=== PATIENT | female | born 1970 | race Caucasian/White ===

== ENCOUNTER 2024-09-17 14:20 | Emergency (ER) | payer OTHER, SELFPAY ==
[2024-09-17 14:25] VITALS: PULSE 94; RESP 14; TEMP 36.5; O2SAT 99
--- OUTSIDE RECORDS SUMMARY | 2024-09-17 14:25 | XMS_ITS | Encounter Summary ---
Author Organization [employer] [facility] Address [address] [place] [address] Care Team Providers Care Content Strategist Name Role Phone Non-Staff, Physician Primary Care Provider Unava ilable Encounter Details Date Type Department Care Team (Latest Contact Info) Description 11/25/2005 Outpatient Historical [facility] CASINO GAMES DEALER 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
--- OUTSIDE RECORDS SUMMARY | 2024-09-17 14:25 | XMS_ITS | Encounter Summary ---
Author Organization [facility] Address [address] [place] [address] Care Team Providers Care Crusher Supervisor Name Role Phone Non-Staff, Physician Primary Care Provider Unava ilable Encounter Details Date Type Department Care Team (Late st Contact Info) Description 02/07/2008 Outpatient Historical [facility] [address] 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
--- OUTSIDE RECORDS SUMMARY | 2024-09-17 14:25 | XMS_ITS | Encounter Summary ---
Author Organization [facility] Address [address] [place] [address] Care Team Providers Care Music Engineer Name Role Phone Non-Staff, Physician Primary Care Provider Unava ilable Encounter Details Date Type Department Care Team (Latest Contact Info) Description 10/22/2005 Outpatient Historical [facility] Maternal and Medicine-[facility] [address] [place] [phone] Fernandez Montanez MD NO ADDRESS ON FILE Abn NEC-Antepar (Primary Dx) Social History Tobacco Use Types Packs/Day Years Used Date Smoking Tobacco: Never Assessed Comments Unknown Sex and Gender Information Value Date Recorded Sex Assigned at Not on file 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
--- OUTSIDE RECORDS SUMMARY | 2024-09-17 14:25 | XMS_ITS | Encounter Summary ---
Author Organization [facility] Address [address] [place] [address] Care Team Providers Care Rug Cleaner Hand Name Role Phone Non-Staff, Physician Primary Care Provider Unava ilable Encounter Details Date Type Department Care Team (Late st Contact Info) Description 02/22/2008 Outpatient Historical [facility] [address] 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
--- OUTSIDE RECORDS SUMMARY | 2024-09-17 14:25 | XMS_ITS | Encounter Summary ---
Author Organization [facility] Address [address] [place] [address] Care Team Providers Care Tufting Machine Operator Single Needle Name Role Phone Non-Staff, Physician Primary Care Provider Unava ilable Encounter Details Date Type Department Care Team (Latest Contact Info) Description 11/25/2005 Outpatient Historical [facility] Maternal and Medicine-[place] live [address] [place] [phone] Russ Nickerson II, MD [address] [place] [phone] Abn NEC-Antepar (Primary Dx); Abnormality in Heart Rate/Rhythm, Antepartum; Poor Grth-Antepart Social History Tobacco Use Types Packs/Day Years Used Date Smoking Tobacco: Never Assessed Comments Unknown Sex and Gender Information Value Date Recorded Sex Assigned at Not on file 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 Gender Identity Not on file Sexual Orientation Not on file documented as of this encounter Plan of Treatment Not on file documented as of this encounter Visit Diagnoses Diagnosis Other known or suspected abnormality, not elsewhere classified, affecting management of mother, antepartum condition or complication- Primary Abnormality in heart rate/rhythm, antepartum condition or complication Poor growth, affecting management of mother, antepartum condition or complication documented in this encounter Care Teams Tufting Machine Operator Single Needle Relationship Specialty Start Date End Date Non-Staff, Physician NO ADDRESS ON FILE PCP - General 06/01/07 documented as of this encounter
--- OUTSIDE RECORDS SUMMARY | 2024-09-17 14:25 | XMS_ITS | Encounter Summary ---
Author Organization [employer] [facility] Address [address] [place] [address] Care Team Providers Care Catering Operations Manager Name Role Phone Non-Staff, Physician Primary Care Provider Unava ilable Encounter Details Date Type Department Care Team (Late st Contact Info) Description 11/10/2005 Inpatient Historical [facility] Ric Alexander MD NO ADDRESS ON FILE Other Current Maternal Conditions Classifiable Elsewhere, Antepartum (Primary Dx) Social History Tobacco Use Types Packs/Day Years Used Date Smoking Tobacco: Never Assessed Comments Unknown Sex and Gender Information Value Date Recorded Sex Assigned at Not on file 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 Gender Identity Not on file Sexual Orientation Not on file documented as of this encounter Plan of Treatment Not on file documented as of this encounter Procedures Procedure Name Priority Date/Time Associated Diagnosis Comments CBC WITH DIFFERENTIAL Routine 11/11/2005 7:04 AM CDT GENTAMICIN LEVEL PEAK Routine 11/10/2005 4:55 PM CDT GENTAMICIN LEVEL TROUGH Routine 11/10/2005 2:45 PM CDT CBC WITH DIFFERENTIAL Routine 11/10/2005 2:25 PM CDT CBC WITH DIFFERENTIAL Routine 11/09/2005 11:08 PM CDT BASIC METABOLIC PANEL Routine 11/09/2005 11:08 PM CDT URINALYSIS MICROSCOPY ONLY Routine 11/09/2005 10:48 PM CDT KETONE, QUALITATIVE, URINE Routine 11/09/2005 10:48 PM CDT URINALYSIS W/REFLEX MICROSCOPIC Routine 11/09/2005 10:48 PM CDT documented in this encounter Results * (ABNORMAL) CBC WITH DIFFERENTIAL (11/11/2005 7:04 AM CDT) WBC 11.8(H) 4.5 - 11.0 K/ul INTERFACE SYSTEM RBC 4.37 4.20 - 5.40 Mil/ul INTERFACE SYSTEM HEMOGLOBIN 13.2 12.0 - 16.0 g/dL INTERFACE SYSTEM HEMATOCRIT 40.2 36.0 - 46.0 % INTERFACE SYSTEM MCV 92.0 84.0 - 103.0 Fl INTERFACE SYSTEM MCH 30.2 27.0 - 34.0 pg INTERFACE SYSTEM MCHC 32.8 30.0 - 35.0 g/dL INTERFACE SYSTEM RDW 13.1 11.0 - 14.5 % INTERFACE SYSTEM PLATELETS 214 140 - 440 K/ul INTERFACE SYSTEM MPV 10.1 8.9 - 12.8 Fl INTERFACE SYSTEM NEUTROPHILS 72.2 42.2 - 75.2 % INTERFACE SYSTEM LYMPHOCYTES 15.2(L) 24.0 - 44.0 % INTERFACE SYSTEM MONOCYTES 7.1 2.0 - 10.0 % INTERFACE SYSTEM EOSINOPHILS 5.2 0.0 - 7.0 % INTERFACE SYSTEM BASOPHILS 0.3 0.0 - 1.0 % INTERFACE SYSTEM NEUTROPHIL ABSOLUTE 8.5(H) 2.0 - 8.0 K/uL INTERFACE SYSTEM LYMPHOCYTE ABSOLUTE 1.8 1.2 - 4.0 K/ul INTERFACE SYSTEM MONOCYTE ABSOLUTE 0.8(H) 0.1 - 0.6 K/ul INTERFACE SYSTEM EOSINOPHIL ABSOLUTE 0.6 0.0 - 0.7 K/ul INTERFACE SYSTEM BASOPHILS ABSOLUTE 0.0 0.0 - 0.2 K/ul INTERFACE SYSTEM 11/11/2005 7:04 AM CDT us Ric Alexander MD HEMATOLOGY ORDERABLES Final Res ult INTERFACE SYSTEM Refer to clinic/hospital department * (ABNORMAL) GENTAMICIN LEVEL PEAK (11/10/2005 4:55 PM CDT) GENTAMICIN, PEAK 3.4(L) 4.0 - 10.0 mcg/mL INTERFACE SYSTEM 11/10/2005 4:55 PM CDT Ric Alexander MD CHEMISTRY ORDERABLES Final Resu Performing Organization Address [facility] de Phone Number INTERFACE SYSTEM Refer to clinic/hospital department * GENTAMICIN LEVEL TROUGH (11/10/2005 2:45 PM CDT) GENTAMICIN, TROUGH 0.3 0.0 - 2.0 mcg/mL INTERFACE SYSTEM 11/10/2005 2:45 PM CDT Ric Alexander MD CHEMISTRY ORDERABLES [facility] Performing Organization Address [facility] Phone Number INTERFACE SYSTEM Refer to clinic/hospital department * (ABNORMAL) CBC WITH DIFFERENTIAL (11/10/2005 2:25 PM CDT) WBC 13.0(H) 4.5 - 11.0 K/ul INTERFACE SYSTEM RBC 4.21 4.20 - 5.40 Mil/ul INTERFACE SYSTEM HEMOGLOBIN 12.9 12.0 - 16.0 g/dL INTERFACE SYSTEM HEMATOCRIT 38.8 36.0 - 46.0 % INTERFACE SYSTEM MCV 92.2 84.0 - 103.0 Fl INTERFACE SYSTEM MCH 30.6 27.0 - 34.0 pg INTERFACE SYSTEM MCHC 33.2 30.0 - 35.0 g/dL INTERFACE SYSTEM RDW 13.1 11.0 - 14.5 % INTERFACE SYSTEM PLATELETS 212 140 - 440 K/ul INTERFACE SYSTEM MPV 10.7 8.9 - 12.8 Fl INTERFACE SYSTEM NEUTROPHILS 85.3(H) 42.2 - 75.2 % INTERFACE SYSTEM LYMPHOCYTES 8.3(L) 24.0 - 44.0 % INTERFACE SYSTEM MONOCYTES 5.6 2.0 - 10.0 % INTERFA CE SYSTEM EOSINOPHILS 0.6 0.0 - 7.0 % INTERF MIKAL SYSTEM BASOPHILS 0.2 0.0 - 1.0 % INTERFAC E SYSTEM NEUTROPHIL ABSOLUTE 11.1(H) 2.0 - 8.0 K/uL INTERFACE SYSTEM LYMPHOCYTE ABSOLUTE 1.1(L) 1.2 - 4.0 K/ul INTERFACE SYSTEM MONOCYTE ABSOLUTE 0.7(H) 0.1 - 0.6 K/ul INTERFACE SYSTEM EOSINOPHIL ABSOLUTE 0.1 0.0 - 0.7 K/ul INTERFACE SYSTEM BASOPHILS ABSOLUTE 0.0 0.0 - 0.2 K/ul INTERFACE SYSTEM PERIPHERAL BLOOD SMEAR REVIEW Automated Diff Automated Diff INTERFACE SYSTEM 11/10/2005 2:25 PM CDT Ric Alexander MD HEMATOLOGY ORDERABLES Final Res ult Performing Organization Address [facility] Phone Number INTERFACE SYSTEM Refer to clinic/hospital department * (ABNORMAL) BASIC METABOLIC PANEL (11/09/2005 11:08 PM CDT) GLUCOSE 97 70 - 110 mg/dL INTERFACE SYSTEM BUN 6(L) 7 - 17 mg/dL INTERFACE SYSTEM CREATININE 0.4(L) 0.7 - 1.2 mg/dL INTERFACE SYSTEM SODIUM 138 136 - 145 mEq/L INTERFACE SYSTEM POTASSIUM 3.8 3.5 - 5.0 mEq/L INTERFACE SYSTEM CHLORIDE 104 95 - 110 mEq/L INTERFACE SYSTEM CO2 21(L) 22 - 32 mmol/l INTERFACE SYSTEM ANION GAP 17 9 - 20 mEq/L INTERFACE SYSTEM OSMOLALITY, CALCULATED 281 275 - 295 mOsm/Kg INTERFACE SYSTEM CALCIUM 9.2 8.4 - 10.5 mg/dL INTERFACE SYSTEM 11/09/2005 11:0 8 PM CDT Ric Alexander MD CHEMISTRY ORDERABLES Final Resu lt Performing Organization Address [facility] Phone Number INTERFACE SYSTEM Refer to clinic/hospital department * (ABNORMAL) CBC WITH DIFFERENTIAL (11/09/2005 11:08 PM CDT) WBC 18.0(H) 4.5 - 11.0 K/ul INTERFACE SYSTEM RBC 4.28 4.20 - 5.40 Mil/ul INTERFACE SYSTEM HEMOGLOBIN 13.3 12.0 - 16.0 g/dL INTERFACE SYSTEM HEMATOCRIT 38.5 36.0 - 46.0 % INTERFACE SYSTEM MCV 90.0 84.0 - 103.0 Fl INTERFACE SYSTEM MCH 31.1 27.0 - 34.0 pg INTERFACE SYSTEM MCHC 34.5 30.0 - 35.0 g/dL INTERFACE SYSTEM RDW 13.0 11.0 - 14.5 % INTERFACE SYSTEM PLATELETS 218 140 - 440 K/ul INTERFACE SYSTEM MPV 10.8 8.9 - 12.8 Fl INTERFACE SYSTEM NEUTROPHILS 86.3(H) 42.2 - 75.2 % INTERFACE SYSTEM LYMPHOCYTES 7.0(L) 24.0 - 44.0 % INTERFACE SYSTEM MONOCYTES 5.8 2.0 - 10.0 % INTERFA CE SYSTEM EOSINOPHILS 0.8 0.0 - 7.0 % INTERF MIKAL SYSTEM BASOPHILS 0.1 0.0 - 1.0 % INTERFAC E SYSTEM NEUTROPHIL ABSOLUTE 15.5(H) 2.0 - 8.0 K/uL INTERFACE SYSTEM LYMPHOCYTE ABSOLUTE 1.3 1.2 - 4.0 K/ul INTERFACE SYSTEM MONOCYTE ABSOLUTE 1.0(H) 0.1 - 0.6 K/ul INTERFACE SYSTEM EOSINOPHIL ABSOLUTE 0.2 0.0 - 0.7 K/ul INTERFACE SYSTEM BASOPHILS ABSOLUTE 0.0 0.0 - 0.2 K/ul INTERFACE SYSTEM PERIPHERAL BLOOD SMEAR REVIEW Automated Diff Automated Diff INTERFACE SYSTEM 11/09/2005 11:0 8 PM CDT us Ric Alexander MD HEMATOLOGY ORDERABLES Final Res ult INTERFACE SYSTEM Refer to clinic/hospital department * (ABNORMAL) URINALYSIS MICROSCOPY ONLY (11/09/2005 10:48 PM CDT) WBC URINE 0-2 0 - 2 INTERFACE SYSTEM RBC UA 0-2 0 - 2 INTERFACE SYSTEM HYALINE CAST None Seen 0 - 2 INTERFA CE SYSTEM BACTERIA UA Few(A) None Seen INTERFAC E SYSTEM 11/09/2005 10:4 8 PM CDT us Ric Alexander MD URINE ORDERABLES Final Result INTERFACE SYSTEM Refer to clinic/hospital department * (ABNORMAL) ACETONE QUALITATIVE, URINE (11/09/2005 10:48 PM CDT) KETONES UA Moderate(A ) Negative INTERFACE SYSTEM 11/09/2005 10:4 8 PM CDT us Ric Alexander MD URINE ORDERABLES Final Result Performing Organization Address [facility] Co de Phone Number INTERFACE SYSTEM Refer to clinic/hospital department * (ABNORMAL) URINALYSIS (11/09/2005 10:48 PM CDT) COLOR UA Yellow Straw INTERFACE SYSTEM CLARITY UA SL CLOUDY Clear INTERFACE SYSTEM LEUKOCYTE ESTERASE UA NEGATIVE NEGATIVE INTERFACE SYSTEM NITRITE UA NEGATIVE NEGATIVE INTERFACE SYSTEM PH UA 6.0 5.0 - 9.0 INTERFACE SYSTEM PROTEIN UA NEGATIVE NEGATIVE INTERFACE SYSTEM Comment: As of 04 positive protein results obtained on routine urinalysis will not be confirmed by sulfosalicylic acid (SSA) precipitation. Current methodology for protein detection is highly sensitive for detection of albumin; therefore, confirmation is not necessary. GLUCOSE UA NEGATIVE NEGATIVE INTERFACE SYSTEM UROBILINOGEN UA 0.2 0.2 INTE RFACE SYSTEM BILIRUBIN UA NEGATIVE NEGATIVE INTERFA CE SYSTEM BLOOD UA Trace(A) NEGATIVE INTERFACE SYSTEM SPECIFIC GRAVITY UA 1.010 1.005 - 1.030 INTERFACE SYSTEM MICRO EXAM Yes(A) No INTERFACE SYSTEM 11/09/2005 10:4 8 PM CDT Ric Alexander MD URINE ORDERABLES Final Result Performing Organization Address [facility] Phone Number INTERFACE SYSTEM Refer to clinic/hospital department documented in this encounter Visit Diagnoses Diagnosis Other current maternal conditions classifiable elsewhere, antepartum- Primary documented in this encounter Care Teams Catering Operations Manager Relationship Specialty Start Date End Date Non-Staff, Physician NO ADDRESS ON FILE PCP - General 06/01/07 documented as of this encounter
--- OUTSIDE RECORDS SUMMARY | 2024-09-17 14:25 | XMS_ITS | Encounter Summary ---
Author Organization [facility] Address [address] [place] [address] Care Team Providers Care Electromechanical Equipment Tester Name Role Phone Non-Staff, Physician Primary Care Provider Unava ilable Encounter Details Date Type Department Care Team (Latest Contact Info) Description 11/18/2005 Outpatient Historical [facility] Maternal and Medicine-[place] live [address] [place] [phone] Russ Nickerson II, MD [address] [place] [phone] Abn NEC-Antepar (Primary Dx); Abnormality in Heart Rate/Rhythm, Antepartum; Poor Grth-Antepart Social History Tobacco Use Types Packs/Day Years Used Date Smoking Tobacco: Never Assessed Comments Unknown Sex and Gender Information Value Date Recorded Sex Assigned at Not on file 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
--- OUTSIDE RECORDS SUMMARY | 2024-09-17 14:25 | XMS_ITS | Encounter Summary ---
Author Organization [facility] Address [address] [place] [address] Care Team Providers Care Ethylbenzene Converter Helper Name Role Phone Non-Staff, Physician Primary Care Provider Unava ilable Encounter Details Date Type Department Care Team (Latest Contact Info) Description 12/16/2005 Outpatient Historical [facility] SAFETY ATTENDANT 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
--- OUTSIDE RECORDS SUMMARY | 2024-09-17 14:25 | XMS_ITS | Encounter Summary ---
Author Organization [facility] Address [address] [place] [address] Care Team Providers Care Rigging Up Man Name Role Phone Non-Staff, Physician Primary Care Provider Unava ilable Encounter Details Date Type Department Care Team (Latest Contact Info) Description 11/11/2005 Outpatient Historical [facility] Maternal and Medicine-[place] live [address] [place] [phone] Russ Nickerson II, MD [address] [phone] Abnormality in Heart Rate/Rhythm, Antepartum (Primary Dx); Other High-Risk Social History Tobacco Use Types Packs/Day Years Used Date Smoking Tobacco: Never Assessed Comments Unknown Sex and Gender Information Value Date Recorded Sex Assigned at Not on file 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
--- OUTSIDE RECORDS SUMMARY | 2024-09-17 14:25 | XMS_ITS | Encounter Summary ---
Author Organization [facility] Address [address] [place] [address] Care Team Providers Care Java Application Engineer Name Role Phone Non-Staff, Physician Primary Care Provider Unava ilable Encounter Details Date Type Department Care Team (Latest Contact Info) Description 11/05/2005 Outpatient Historical [facility] Maternal and Medicine-[place] live [address] [place] [phone] Russ Nickerson II, MD [address] [place] [phone] Abn NEC-Antepar (Primary Dx) Social History Tobacco Use Types Packs/Day Years Used Date Smoking Tobacco: Never Assessed Comments Unknown Sex and Gender Information Value Date Recorded Sex Assigned at Not on file 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
--- OUTSIDE RECORDS SUMMARY | 2024-09-17 14:25 | XMS_ITS | Encounter Summary ---
Author Organization [facility] Address [address] [place] [address] Care Team Providers Care Commercial Green Building Designer Name Role Phone Non-Staff, Physician Primary Care Provider Unava ilable Encounter Details Date Type Department Care Team (Latest Contact Info) Description 12/02/2005 Outpatient Historical [facility] Maternal and Medicine-[place] live [address] [place] [phone] Russ Nickerson II, MD [address] [place] [phone] Abn NEC-Antepar (Primary Dx); Poor Grth-Antepart; Abnormality in Heart Rate/Rhythm, Antepartum Social History Tobacco Use Types Packs/Day Years Used Date Smoking Tobacco: Never Assessed Comments Unknown Sex and Gender Information Value Date Recorded Sex Assigned at Not on file 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 Gender Identity Not on file Sexual Orientation Not on file documented as of this encounter Plan of Treatment Not on file documented as of this encounter Visit Diagnoses Diagnosis Other known or suspected abnormality, not elsewhere classified, affecting management of mother, antepartum condition or complication- Primary Poor growth, affecting management of mother, antepartum condition or complication Abnormality in heart rate/rhythm, antepartum condition or complication documented in this encounter Care Teams Commercial Green Building Designer Relationship Specialty Start Date End Date Non-Staff, Physician NO ADDRESS ON FILE PCP - General 06/01/07 documented as of this encounter
--- OUTSIDE RECORDS SUMMARY | 2024-09-17 14:25 | XMS_ITS | Encounter Summary ---
Author Organization [facility] Address [address] [place] [address] Care Team Providers Care Tractor Driver Teamster Name Role Phone Non-Staff, Physician Primary Care Provider Unava ilable Encounter Details Date Type Department Care Team (Latest Contact Info) Description 11/10/2005 Outpatient Historical [facility] Maternal and Medicine-[place] live [address] [place] [phone] Russ Nickerson II, MD [address] [phone] Abnormality in Heart Rate/Rhythm, Antepartum (Primary Dx); Other High-Risk Social History Tobacco Use Types Packs/Day Years Used Date Smoking Tobacco: Never Assessed Comments Unknown Sex and Gender Information Value Date Recorded Sex Assigned at Not on file Legal Sex Female 4:47 AM LONG TERM Gender Identity Not on file Sexual Orientation Not on file documented as of this encounter Plan of Treatment Not on file documented as of this encounter Visit Diagnoses Diagnosis Abnormality in heart rate/rhythm, antepartum condition or complication- Primary Supervision of other high-risk (V23.89) Supervision of other high-risk documented in this encounter Care Teams Tractor Driver Teamster Relationship Specialty Start Date End Date Non-Staff, Physician NO ADDRESS ON FILE PCP - General 06/01/07 documented as of this encounter
--- OUTSIDE RECORDS SUMMARY | 2024-09-17 14:25 | XMS_ITS | Encounter Summary ---
Author Organization [facility] Address [address] [place] [address] Care Team Providers Care Talent Development Consultant Name Role Phone Non-Staff, Physician Primary Care Provider Unava ilable Encounter Details Date Type Department Care Team (Late st Contact Info) Description 02/01/2008 Outpatient Historical [facility] [address] [place] [address] Tommy Rogers, Russ Hollis MD [address] [phone] Social History Tobacco Use Types Packs/Day Years Used Date Smoking Tobacco: Never Assessed Comments Unknown Sex and Gender Information Value Date Recorded Sex Assigned at Not on file Legal Sex Female 4:47 AM PER DIEM CLERK Gender Identity Not on file Sexual Orientation Not on file documented as of this encounter Plan of Treatment Not on file documented as of this encounter Visit Diagnoses Not on filedocumented in this encounter Care Teams Talent Development Consultant Relationship Specialty Start Date End Date Non-Staff, Physician NO ADDRESS ON FILE PCP - General 06/01/07 documented as of this encounter
--- OUTSIDE RECORDS SUMMARY | 2024-09-17 14:25 | XMS_ITS | Encounter Summary ---
Author Organization [facility] Address [address] [place] [address] Care Team Providers Care Data Storage Specialist Name Role Phone Non-Staff, Physician Primary Care Provider Unava ilable Encounter Details Date Type Department Care Team (Latest Contact Info) Description 12/16/2005 Outpatient Historical [facility] Maternal and Medicine-[facility] live [address] [place] [phone] Russ Nickerson II, MD [address] [place] [phone] Abn NEC-Antepar (Primary Dx); Poor Grth-Antepart; Abnormality in Heart Rate/Rhythm, Antepartum Social History Tobacco Use Types Packs/Day Years Used Date Smoking Tobacco: Never Assessed Comments Unknown Sex and Gender Information Value Date Recorded Sex Assigned at Not on file 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
--- OUTSIDE RECORDS SUMMARY | 2024-09-17 14:25 | XMS_ITS | Encounter Summary ---
Author Organization [facility] Address [address] [place] [address] Care Team Providers Care Turning Sander Operator Name Role Phone Non-Staff, Physician Primary Care Provider Unava ilable Encounter Details Date Type Department Care Team (Latest Contact Info) Description 11/07/2005 Outpatient Historical [facility] Ric Alexander MD NO ADDRESS ON FILE Other Current Maternal Conditions Classifiable Elsewhere, Antepartum (Primary Dx) Social History Tobacco Use Types Packs/Day Years Used Date Smoking Tobacco: Never Assessed Comments Unknown Sex and Gender Information Value Date Recorded Sex Assigned at Not on file 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
--- OUTSIDE RECORDS SUMMARY | 2024-09-17 14:25 | XMS_ITS | Encounter Summary ---
Author Organization [facility] Address [address] [place] [address] Care Team Providers Care Assurance Engineer Name Role Phone Non-Staff, Physician Primary Care Provider Unava ilable Encounter Details Date Type Department Care Team (Latest Contact Info) Description 11/05/2005 Outpatient Historical [facility] Ric Alexander MD NO ADDRESS ON FILE Supervision of Other Normal (Primary Dx) Social History Tobacco Use Types Packs/Day Years Used Date Smoking Tobacco: Never Assessed Comments Unknown Sex and Gender Information Value Date Recorded Sex Assigned at Not on file 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 Sex Female 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 Gender Identity Not on file Sexual Orientation Not on file documented as of this encounter Plan of Treatment Not on file documented as of this encounter Procedures Procedure Name Priority Date/Time Associated Diagnosis Comments CHROMOSOME ANALYSIS, AMNIOTIC FLUID Routine 11/05/2005 2:25 PM CDT documented in this encounter Results * CHROMOSOME ANALYSIS, AMNIOTIC FLUID (11/05/2005 2:25 PM CDT) CHROMOSOMES, AMNIOTIC FLD See Sep Report INTERFACE SYSTEM 11/05/2005 2:25 PM CDT us Ric Alexander MD BODY FLUIDS AND STOOLS Final Re sult INTERFACE SYSTEM Refer to clinic/hospital department documented in this encounter Visit Diagnoses Diagnosis Supervision of other normal - Primary documented in this encounter Care Teams Assurance Engineer Relationship Specialty Start Date End Date Non-Staff, Physician NO ADDRESS ON FILE PCP - General 06/01/07 documented as of this encounter
--- OUTSIDE RECORDS SUMMARY | 2024-09-17 14:25 | XMS_ITS | Encounter Summary ---
Author Organization [facility] Address [address] [place] [address] Care Team Providers Care It Integration Architect Name Role Phone Non-Staff, Physician Primary Care Provider Unava ilable Encounter Details Date Type Department Care Team (Late st Contact Info) Description 01/27/[address] [facility] [address] 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
--- OUTSIDE RECORDS SUMMARY | 2024-09-17 14:25 | XMS_ITS | Encounter Summary ---
Author Organization [facility] Address [address] [place] [address] Care Team Providers Care Stogy Maker Name Role Phone Non-Staff, Physician Primary Care Provider Unava ilable Encounter Details Date Type Department Care Team (Late st Contact Info) Description 01/26/2008 Outpatient Historical [facility] [address] 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
--- OUTSIDE RECORDS SUMMARY | 2024-09-17 14:25 | XMS_ITS | Encounter Summary ---
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
--- OUTSIDE RECORDS SUMMARY | 2024-09-17 14:25 | XMS_ITS | Encounter Summary ---
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
--- OUTSIDE RECORDS SUMMARY | 2024-09-17 14:25 | XMS_ITS | Encounter Summary ---
Author Organization [facility] Address [address] [place] [address] Care Team Providers Care Security Services Manager Name Role Phone Non-Staff, Physician Primary Care Provider Unava ilable Encounter Details Date Type Department Care Team (Latest Contact Info) Description 10/15/2005 Outpatient Historical [facility] Maternal and Medicine[facility] d [address] [place] [phone] Fernandez Montanez MD NO ADDRESS ON FILE Abn NEC-Antepar (Primary Dx) Social History Tobacco Use Types Packs/Day Years Used Date Smoking Tobacco: Never Assessed Comments Unknown Sex and Gender Information Value Date Recorded Sex Assigned at Not on file 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
--- OUTSIDE RECORDS SUMMARY | 2024-09-17 14:25 | XMS_ITS | Clinical Summary ---
Author Organization [facility] Address [address] [place] [address] Care Team Providers Care Industrial Equipment Wirer Name Role Phone Non-Staff, Physician Primary Care Provider Unava ilable Allergies Active Allergy Reactions Criticality Noted Date Comments Amoxicillin Rash,Swelling Medium 03/07/2008 Difficult to swallow Sulfa (Sulfonamide Antibiotics) Rash Low 03/07/2008 Medications SILVER NITRATE APPLICATORS Topical Misc Apply to affected area. Active ALBUTEROL, BULK, MISC 1-2 Inhalers by Misc.(Non-Drug; Combo Route) route every 2 hours as needed. Active BENADRYL 25 mg Oral Cap Take 25 mg by mouth every 6 hours as needed. Active PULMICORT FLEXHALER 180 mcg/Inhalation Inhalation AePB Take 2 Puffs by inhalation 2 times daily. Active CLARITIN-D 24 HOUR PO Take 1 Tab by mouth 1 time daily as needed. 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 Gender Identity Not on file Sexual Orientation Not on file Plan of Treatment Health Maintenance Due Date Last Done Comments DTAP/TDAP/TD VACCINES (1 - Tdap) 08/29/1991 HEPATITIS B VACCINES (1 of 3 - 19+ 3-dose series) 08/16 HPV/Cotest (21-29) 1993 CERVICAL CANCER SCREENING 2002 HPV/Cotest (30-65) 2002 PAP SMEAR 2002 BREAST CANCER SCREENING 2012 COLORECTAL SCREENING 2017 Colorectal Cancer Screening 2017 FIT-DNA Q 3 years 2017 FIT/FOBT Q 1 year 2017 Flex Sig/CT Colonography Q 5 years 2017 ZOSTER VACCINE (1 of 2) 2022 INFLUENZA VACCINE (#1) 2024 12/16/2005 Insurance [employer] Care Teams Industrial Equipment Wirer Relationship Specialty Start Date End Date Non-Staff, Physician NO ADDRESS ON FILE PCP - General 06/01/07
--- OUTSIDE RECORDS SUMMARY | 2024-09-17 14:25 | XMS_ITS | Encounter Summary ---
Author Organization [facility] Address 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 Gender Identity Not on file Sexual Orientation Not on file documented as of this encounter Plan of Treatment Not on file documented as of this encounter Procedures Procedure Name Priority Date/Time Associated Diagnosis Comments PARVOVIRUS B19 AB IGG/IGM Routine 10/22/2005 2:30 PM CDT documented in this encounter Results * PARVOVIRUS B19 AB IGG/IGM (10/22/2005 2:30 PM CDT) PARVOVIRUS BY PCR See Sep Report INTERFACE SYSTEM 10/22/2005 2:30 PM CDT us Historical Provider CHEMISTRY ORDERABLES Final R esult INTERFACE SYSTEM Refer to clinic/hospital department documented in this encounter Visit Diagnoses Not on filedocumented in this encounter Care Teams Terrazzo Laborer Relationship Specialty Start Date End Date Non-Staff, Physician NO ADDRESS ON FILE PCP - General 06/01/07 documented as of this encounter
--- OUTSIDE RECORDS SUMMARY | 2024-09-17 14:26 | XMS_ITS | Encounter Summary ---
Author Organization [facility] Address [address] [place] [address] Care Team Providers Care Adoption Worker Name Role Phone Non-Staff, Physician Primary Care Provider Unava ilable Encounter Details Date Type Department Care Team (Latest Contact Info) Description 12/09/2005 Outpatient Historical [facility] BRAILLE OPERATOR 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
--- OUTSIDE RECORDS SUMMARY | 2024-09-17 14:26 | XMS_ITS | Encounter Summary ---
Author Organization [facility] Address [address] [place] [address] Care Team Providers Care Application Processor Name Role Phone Non-Staff, Physician Primary Care Provider Unava ilable Encounter Details Date Type Department Care Team (Latest Contact Info) Description 10/30/2005 Outpatient Historical [facility] Maternal and Medicine-[facility] d [address] [place] [phone] Fernandez Montanez MD NO ADDRESS ON FILE Abn NEC-Antepar (Primary Dx) Social History Tobacco Use Types Packs/Day Years Used Date Smoking Tobacco: Never Assessed Comments Unknown Sex and Gender Information Value Date Recorded Sex Assigned at Not on file Legal Sex Female 4:47 AM FAMILY 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
--- OUTSIDE RECORDS SUMMARY | 2024-09-17 14:26 | XMS_ITS | Encounter Summary ---
Author Organization [facility] Address [address] [place] [address] Care Team Providers Care Photographic Lithographer Name Role Phone Non-Staff, Physician Primary Care Provider Unava ilable Encounter Details Date Type Department Care Team (Latest Contact Info) Description 12/09/2005 Outpatient Historical [facility] Maternal and Medicine-[facility] live [address] [place] [phone] Russ Nickerson II, MD [address] [place] [phone] Abn NEC-Antepar (Primary Dx); Abnormality in Heart Rate/Rhythm, Antepartum; Poor Grth-Antepart Social History Tobacco Use Types Packs/Day Years Used Date Smoking Tobacco: Never Assessed Comments Unknown Sex and Gender Information Value Date Recorded Sex Assigned at Not on file 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
[2024-09-17] MEDS: rabies vaccine 2.5 unit SDV IM (14:54)
[2024-09-17] MEDS: rabies IG 300 unit/mL SDV 1 mL 1410 UNIT IM (14:55)
--- NOTE | 2024-09-17 15:02 | ED_ITS ---
HPI - Animal Bite General: Chief Complaint: Animal Bite Stated Complaint: animal bite Time Seen by Provider: 09/17/24 14:21 Source: patient Mode of arrival: ambulatory Limitations: no limitations History of Present Illness: Patient is a 54-year-old female who presents the emergency department complaining of a dog bite to her left hand. Patient states that someone left a box of puppies on her door, and one of them bit her and then ran off. She has been unable to locate the dog and is unsure of vaccination status. Also unsure of any abnormal behavior demonstrated before hand, just dating that it appeared spooked when she went to go retrieve them. Bleeding controlled on arrival no symptoms reported otherwise. No pain. No neurovascular symptoms. States tetanus is up-to-date. MD complaint: animal bite Onset (ago): hour(s) Animal: dog Description of animal: unknown animal and immunizations unknown Mechanism: bite Location - Extremities: Left: hand Associated symptoms: Deny chills, fever(s) or headache(s) Related Data Previous Rx's ?Medication ?Instructions ?Recorded albuterol sulfate 90 mcg/actuation 2 puff inhalation Q 6H PRN 08/22/24 aerosol inhaler shortness of breath or wheez ing #8.5 grams epinephrine 0.3 mg/0.3 mL 0.3 mg (0.3 mL) IM Q10M PRN 08/22/24 injection, auto-injector (EpiPen anaphylaxis #2 ea 2-Ankit) amoxicillin 875 mg-potassium 1 tab PO BID 5 days #10 t abs 09/17/24 clavulanate 125 mg tablet Allergies Allergy/AdvReac Type Severity Reaction Status Date / Time Sulfa (Sulfonamide Allergy Unknown Verified 09/17/24 14:28 Antibiotics) amoxicillin Allergy rash Uncoded 09/17/24 14:28 Review of Systems General: Reports: 10 or more systems reviewed and unremarkable except in HPI and below Const: Denies: fever(s) or chills Card: Denies: chest pain Resp: Denies: dyspnea GI: Denies: abdominal pain, nausea, vomiting or diarrhea Musc: Denies: extremity pain or joint pain Skin/Breast: Reports: new lesions (Bite left hand); Denies: rash, skin pain or skin tenderness Neuro: Denies: headache(s) PFS ED PFSH: Medical History Mild intermittent asthma without complication Surgical History History of section Family History Mother Stroke Father CAD (coronary artery disease) Hypertension Social History Smoking and tobacco/nicotine status: never used tobacco/nicotine Alcohol intake: never Substance/Drug Use: never Household members: spouse and children Marital status: Number of children: 4 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 Crystal/Worship: [employer] Special crystal needs: No Agree to transfusion: Yes Physical Exam Const: COMMON NORMALS: no acute distress, average body habitus, patient oriented x3, no limitations, healthy appearing, alert and well nourished HENMT: COMMON NORMALS: normocephalic and atraumatic HEAD & SCALP: normocephalic and atraumatic Neck/C-Spine: COMMON NORMALS: full ROM, no lymphadenopathy, supple and no meningeal signs Resp: COMMON NORMALS: normal respiratory effort, No use of accessory muscles and clear to auscultation bilaterally AUSCULTATION: clear to auscultation bilaterally Cardio: COMMON NORMALS: regular rate and regular rhythm RATE: regular rate RHYTHM: regular rhythm Extremity: COMMON NORMALS: full ROM and capillary refill normal Neuro: COMMON NORMALS: patient oriented x3 SENSORIUM/ORIENTATION: Yes alert MENINGEAL SIGNS: Yes no meningeal signs Skin: COMMON NORMALS: turgor normal NARRATIVE SKIN EXAM: 2 small puncture wounds to left fourth f hang, no active bleeding. GENERAL SKIN EXAM: turgor normal Course Vital Signs: Vital signs: Vital Signs Temperature 97.7 F 09/17/24 14:25 Pulse Rate 94 09/17/24 14:25 Respiratory Rate 14 09/17/24 14:25 Pulse Oximetry 99 09/17/24 14:25 Oxygen Delivery Me thod Room Air 09/17/24 14:25 MDM - Animal Bite Medical Decision Making Rabies prophylaxis started due to unknown vaccination status of the animal. Follow-up discussed with patient, and will be started on prophylactic Augmentin for a few days. Discharge at this time. No radiology studies performed this visit Discharge Plan Discharge Patient Disposition: Home Clinical Impression: Dog bite Condition: Stable Prescriptions: New amoxicillin-pot clavulanate 875-125 mg tablet 1 tab PO BID 5 Days Qty: 10 0RF No Action albuterol sulfate 90 mcg/actuation HFA aerosol inhaler 2 puff inhalation Q6H PRN (Reason: shortness of breath or wheezing) Qty: 8.5 0RF epinephrine [EpiPen 2-Ankit] 0.3 mg/0.3 mL auto-injector 0.3 mg IM Q10M PRN (Reason: anaphylaxis) Qty: 2 0RF Rx Instructions: for 2 doses Discharge Orders: Discharge ED (Routine); Ordered 09/17/24 Ordered By: Jonn Ureña Referrals: Shannan Hoff MD [Primary Care Provider, Family Practice] Patient Instructions: Patient Portal & Guru Instructions Activity Restrictions/Additional Instructions: Dog Bite Discharge Instructions Diagnosis and Treatment Initiated: - 54-year-old female presented after a dog bite. - Received rabies postexposure prophylaxis (PEP) with human rabies immune globulin (HyperRAB) and rabies vaccine (RabAvert) in the emergency department. - Prescribed amoxicillin-clavulanate (Augmentin) for 5 days as prophylaxis against wound infection. Home Wound Care: - Wound Cleaning: Continue to gently clean the wound at home at least once daily. Use soap and running tap water or saline; both are effective for reducing infection risk. Clean for at least 15 minutes if possible, especially in the first 24 hours. - Dressings: After cleaning, cover the wound with a clean, non-adherent dressing. Occlusive dressings (such as film or hydrogel) may promote better healing than dry dressings. Change the dressing daily or if it becomes wet or soiled. - Topical Agents: Application of an iodine-containing or other viricidal agent is reasonable if available, but not required if thorough cleaning is performed. - Avoid: Do not apply ointments or creams unless specifically instructed. Do not close the wound with adhesive strips or sutures at home. Antibiotic Prophylaxis: - Take amoxicillin-clavulanate (Augmentin) as prescribed: 875 mg/125 mg orally twice daily for 5 days. - If allergic to penicillin, alternatives include clindamycin plus trimethoprim- sulfamethoxazole. - Complete the full course even if the wound appears to be healing. Rabies Postexposure Prophylaxis (PEP): - Rabies is nearly 100% fatal once symptoms develop, but is preventable with timely PEP. - The standard PEP regimen for previously unvaccinated, immunocompetent adults is: - Rabies immune globulin (HRIG): Given once at initial visit, infiltrated around the wound if possible. - Rabies vaccine (RabAvert): 1.0 mL IM on days 0 (today), 3, 7, and 14. - Follow-up: Return for scheduled vaccine doses on days 3, 7, and 14. Adherence to the schedule is critical for efficacy. - If the biting animal is available and remains healthy after 10 days of observation, discuss with your provider whether PEP can be discontinued. Tetanus Prophylaxis: - Ensure tetanus immunization is up to date. If not, a booster may be indicated. Return Precautions: - Infection: Return promptly if you develop any of the following at the wound site: increasing redness, swelling, warmth, pain, pus, or red streaks. - Systemic Symptoms: Return for fever, chills, malaise, or if you feel unwell. - Rabies Symptoms: If you develop neurological symptoms (confusion, agitation, difficulty swallowing, muscle spasms), seek emergency care immediately, though this is extremely rare if PEP is completed. - Allergic Reaction: Return immediately for rash, difficulty breathing, or swelling after taking antibiotics or receiving vaccines. Rabies Information and Statistics: - Rabies is a viral infection transmitted through the saliva of infected animals, most commonly via bites. - In the [place], rabies is rare in humans (1?2 deaths per year), but animal exposures are common, with ~55,000 people receiving PEP annually. - Globally, rabies causes ~59,000 deaths per year, mostly in [place] and [place]. - In the [place], most human rabies cases are now linked to wildlife (especially bats), but dog bites remain a concern, particularly from unvaccinated animals. - PEP is nearly 100% effective if administered before symptom onset. Additional Instructions: - Monitor the wound daily for signs of infection. - Avoid contact with wild or unfamiliar animals. - Report the bite to local public health authorities as required by law. - Ensure the biting animal is observed for 10 days if possible; notify your provider if the animal becomes ill or is unavailable for observation. Follow-Up: - Return for scheduled rabies vaccine doses. - Schedule a wound check with your primary care provider within 48?72 hours, or sooner if concerns arise. Contact Information: - For questions or concerns, contact your healthcare provider or local emergency department. Print Language: French Coding Level of Care Code ED Portfolio Accountant for Gricelda Meza
[2024-09-17 15:47] VITALS: BP 129/87; PULSE 88; O2SAT 99
== END 2024-09-17 15:48 | disposition home or self-care (01) ==
PROVIDERS: Emergency Provider Physician Assistant; PCP Family Medicine
DX: S61.452A Open bite of left hand, initial encounter (principal); W54.0XXA Bitten by dog, initial encounter; Z20.3 Contact with and (suspected) exposure to rabies; Z29.14 Encounter for prophylactic rabies immune globulin
CPT/HCPCS: 90375; 90471; 90675; 96372; 99283

== ENCOUNTER 2024-10-03 14:30 | Oncology outpatient (recurring) (ONCR) | payer OTHER, SELFPAY ==
[2024-09-20] MEDS: rabies vaccine 2.5 unit SDV IM (15:23)
[2024-09-26] MEDS: rabies vaccine 2.5 unit SDV IM (16:39)
[2024-10-03] MEDS: rabies vaccine 2.5 unit SDV IM (15:12)
== END 2024-10-16 23:59 | disposition home or self-care (01) ==
PROVIDERS: PCP Family Medicine; Visit Provider Physician Assistant
DX: Z53.9 Procedure and treatment not carried out, unspecified reason (principal); Z23 Encounter for immunization; Z20.3 Contact with and (suspected) exposure to rabies; T14.8XXA Other injury of unspecified body region, initial encounter; X58.XXXA Exposure to other specified factors, initial encounter
CPT/HCPCS: 90471; 90675